=== PATIENT | male | born 1965 | race Caucasian/White ===

== ENCOUNTER 2017-01-02 18:49 | Inpatient (IN) | payer OTHER ==
[~2017-01-02] VITALS: Ht 167.6 cm; Wt 98.1 kg
[2017-01-02] MEDS ORDERED: ceFAZolin 2 GM PREMIX 50 ML ONE (18:53)
[2017-01-02] MEDS ORDERED: DIPHTH/TETANUS/ACEL PERTUSSIS (BOOSTER) 0.5 ML VIAL/PFS IM ONE (18:53)
[2017-01-02 18:56] VITALS: O2SAT 100
[2017-01-02] MEDS ORDERED: ONDANSETRON HCL 4 MG/2 ML VIAL ONE (18:57)
[2017-01-02 19:10] LABS: I-STAT POTASSIUM 4.2 MMOL/L (3.5-4.9)
--- NOTE | 2017-01-02 19:17 | PD ---
HPI Chief Complaint: trauma alert Time Seen by Provider: 18:50 Travel History International Travel<30 days: No Contact w/Intl Traveler<30days: No Traveled to known affect area: No History of Present Illness HPI Patient in his 50s was up on a scaffolding when the scaffolding gave way and patient fell. Fall was more than 8 feet height. Patient had an open tib-fib fracture of his right lower extremity and multiple right hand finger fractures. He was brought in by EMS emergently. GCS was 15 and hemodynamically stable. Patient received 8 mg of morphine on route. Patient denied any head injury or loss of consciousness. EMS had not boarded and collared him since patient didn' t complain of any neck pain. [facility] Past Medical History Narrative Medical Unknown Allergies-Medications (Allergen,Severity, Reaction): Coded Allergies: No Known Allergies (Unverified , 01/02/17) Comments Unknown Reported Meds & Prescriptions Reported Meds & Active Scripts Active Narrative Medication Unknown Review of Systems Except as stated in HPI: all other systems reviewed are Neg Physical Exam Narrative GENERAL: Awake, alert, moderate distress SKIN: Focused skin assessment warm/dry. Laceration of mid rivers area of the right leg about 3 cm with blood oozing. HEAD: Atraumatic. Normocephalic. EYES: Pupils equal and round. No scleral icterus. No injection or drainage. ENT: No nasal bleeding or discharge. Mucous membranes pink and moist. NECK: Trachea midline. No JVD. CARDIOVASCULAR: Regular rate and rhythm. No murmur appreciated. RESPIRATORY: No accessory muscle use. Clear to auscultation. Breath sounds equal bilaterally. GASTROINTESTINAL: Abdomen soft, non-tender, nondistended. Hepatic and splenic margins not palpable. MUSCULOSKELETAL: The right middle and ring finger has deformity. The ring finger ulnar aspect there is a laceration at the PIP joint. No clubbing. No cyanosis. No edema. The middle finger at the distal tip was cyanotic and discolored. NEUROLOGICAL: Awake and alert. No obvious cranial nerve deficits. Motor grossly within normal limits. Normal speech. PSYCHIATRIC: Appropriate mood and affect; insight and judgment normal. Data Data Last Documented VS Vital Signs Date Time Temp Pulse Resp B/P (MAP) Pulse Ox O2 Delivery O2 Flow Rate FiO2 01/02/17 18:56 100 21 Orders Orders Ed Poc Ultrasound (01/02/17 ) Cefazolin 2 Gm Premix (Ancef 2 Gm Premix (01/02/17 18:53) Hniz-Odf-Xrenas (Booster) Inj (Boostrix (01/02/17 18:53) Fentanyl Inj (Fentanyl Inj) (01/02/17 18:57) Ondansetron Inj (Zofran Inj) (01/02/17 18:57) Admit Order (Ed Use Only) (01/02/17 19:00) Labs Laboratory Tests Test 01/02/17 18:59 Bedside Hemoglobin 12.9 G/DL Bedside Hematocrit 38.0 % Bedside Sodium 143 MMOL/L Bedside Potassium 4.2 MMOL/L Bedside Chloride 108 MMOL/L Bedside Blood Urea Nitrogen 28 MG/DL Bedside Creatinine 1.3 MG/DL Bedside Glucose 103 MG/DL [facility] Medical Screen Exam Complete: Yes Emergency Medical Condition: Yes Medical Record Reviewed: Yes EKG Prior to Arrival: Yes Differential Diagnosis Intracranial bleed, cervical fracture, intrathoracic injury, intra-abdominal injury, open tib-fib fracture, multiple finger fracture Narrative Course 7:13 PM patient was examined along with the trauma surgeon. Pelvic and chest x- ray was negative. Patient was given IV fentanyl as per the surgeon's order for pain control. The finger dislocation was reduced by me. Please refer to my procedure note. Patient will go for CT scan. The trauma surgeon is assisting the patient. Patient remained hemodynamically stable the entire time. He was given IV Ancef and IM tetanus. Trauma surgeon will speak with the orthopedist as well as the hand surgeon. The [employer] cleaned up the wound with Betadine and saline and splint was applied. Critical Care Narrative Aggregate critical care time was 30 minutes. Time to perform other separately billable procedures was not included in the critical care time. My time did not include minutes spent treating any other patients simultaneously or on activities that did not directly contribute to the patient's treatment. The services I provided to this patient were to treat and/or prevent clinically significant deterioration that could result in: Trauma alert, I provided critical care services requiring my management, as noted below: Chart data review, documentation time, medication orders and management, vital sign assessments/reviewing monitor data, ordering and reviewing lab tests, ordering and interpreting/reviewing x-rays and diagnostic studies, care of the patient and discussion of the patient with the admitting physicians. Procedures Procedure Narrative Dislocation reduction: The middle finger DIP joint dislocation was reduced by traction. After the procedure the distal tip started to pink up. Patient tolerated the procedure well. Patient was given IV 50 g of fentanyl prior to the procedure. The finger was splinted. Trauma Alert - Level One Trauma Alert Level One: Full trauma team activate, Patient evaluated, Trauma surgeon summoned Time Surgeon Summoned: 18:[address] Pinzon Diagnosis Diagnosis: Primary Impression: Fall Qualified Codes: W19.XXXA - Unspecified fall, initial encounter Additional Impressions: Open fracture of tibia and fibula Qualified Codes: S82.201B - Unspecified fracture of shaft of right tibia, initial encounter for open fracture type I or II; S82.401B - Unspecified fracture of shaft of right fibula, initial encounter for open fracture type I or II Finger fracture Qualified Codes: S62.624B - Displaced fracture of middle phalanx of right ring finger, initial encounter for open fracture Finger dislocation Qualified Codes: S63.259A - Unspecified dislocation of unspecified finger, initial encounter Admitting Physician Requests: it Mohinder Posada MD Jan 02, 2017 19:17
--- NOTE | 2017-01-02 19:22 | RADRPT ---
EXAM DATE/TIME: 01/02/2017 19:02 [facility] COMPARISON: No previous studies available for comparison. INDICATIONS : Trauma alert, fall RADIATION DOSE: 69.15 CTDIvol (mGy) MEDICAL HISTORY : None SURGICAL HISTORY : None. ENCOUNTER: Initial ACUITY: 1 day PAIN SCALE: 0/10 LOCATION: cranial TECHNIQUE: Multiple contiguous axial images were obtained of the head. Using automated exposure control and adj ustment of the mA and/or kV according to patient size, radiation dose was kept as low as reasonably a chievable to obtain optimal diagnostic quality images. DICOM format image data is available electro nically for review and comparison. FINDINGS: CEREBRUM: The ventricles are normal for age. No evidence of midline shift, mass lesion, hemorrhage or acute in farction. No extra-axial fluid collections are seen. POSTERIOR FOSSA: The cerebellum and brainstem are intact. The 4th ventricle is midline. The cerebellopontine angle i s unremarkable. EXTRACRANIAL: The visualized portion of the orbits is intact. SKULL: The calvaria is intact. No evidence of skull fracture. CONCLUSION: 1. No acute intracranial abnormalities. Gallo Trujillo MD on January 02, 2017 at 19:19 Board Certified Radiologist. This report was verified electronically.
[2017-01-02] MEDS ORDERED: IOHEXOL 350 MG/ML 10 ML VIAL (for RAD DIAG) IVCONTRAST ONE (19:29)
--- NOTE | 2017-01-02 19:31 | RADRPT ---
EXAM DATE/TIME: 01/02/2017 18:42 [facility] COMPARISON: CT THORAX W CONTRAST, January 02, 2017, 19:10. INDICATIONS : Trauma alert. Patient fell off of ladder. MEDICAL HISTORY : None. SURGICAL HISTORY : None. ENCOUNTER: Initial ACUITY: 1 day PAIN SCORE: Non-responsive. LOCATION: chest FINDINGS: A single view of the chest demonstrates the lungs to be symmetrically aerated without evidence of mas s, infiltrate or effusion. The cardiomediastinal contours are unremarkable. Osseous structures are intact. CONCLUSION: No acute disease. Gallo Trujillo MD on January 02, 2017 at 19:29 Board Certified Radiologist. This report was verified electronically.
--- NOTE | 2017-01-02 19:32 | RADRPT ---
EXAM DATE/TIME: 01/02/2017 18:42 [facility] COMPARISON: No previous studies available for comparison. INDICATIONS : Trauma alert. Patient fell from ladder today MEDICAL HISTORY : Unobtainable SURGICAL HISTORY : Unobtainable ENCOUNTER: Initial ACUITY: 1 day PAIN SCORE: Non-responsive. LOCATION: Right hand FINDINGS: There is dislocation at the proximal interphalangeal joint of the fourth finger and at least subluxat ion at the distal interphalangeal joint of the third finger. Lateral the not available. No definite f racture seen. CONCLUSION: 1. Dislocation of the fourth and possibly the third finger. Gallo Trujillo MD on January 02, 2017 at 19:30 Board Certified Radiologist. This report was verified electronically.
--- NOTE | 2017-01-02 19:33 | RADRPT ---
EXAM DATE/TIME: 01/02/2017 18:42 [facility] COMPARISON: No previous studies available for comparison. INDICATIONS : Trauma alert. Patient fell from roof today MEDICAL HISTORY : None. SURGICAL HISTORY : None. ENCOUNTER: Initial ACUITY: 1 day PAIN SCORE: Non-responsive. LOCATION: Right mid-shaft tibia FINDINGS: Two view examination of the right tibia demonstrates slightly comminuted fracture mid tibial shaft wi th about half shaft width displacement. Slightly angulated spiral fracture proximal fibular shaft. No dislocation seen. CONCLUSION: 1. Tibial and fibular fractures as above. Gallo Trujillo MD on January 02, 2017 at 19:31 Board Certified Radiologist. This report was verified electronically.
--- NOTE | 2017-01-02 19:36 | RADRPT ---
EXAM DATE/TIME: 01/02/2017 19:03 [facility] COMPARISON: No previous studies available for comparison. INDICATIONS : Trauma alert, fall RADIATION DOSE: 42.88 CTDIvol (mGy) MEDICAL HISTORY : None SURGICAL HISTORY : None. ENCOUNTER: Initial ACUITY: 1 day PAIN SCALE: 0/10 LOCATION: neck TECHNIQUE: Volumetric scanning of the cervical spine was performed. Multiplanar reconstructions in the sagittal, coronal and oblique axial planes were performed. Using automated exposure control and adjustment o f the mA and/or kV according to patient size, radiation dose was kept as low as reasonably achievable to obtain optimal diagnostic quality images. DICOM format image data is available electronically f or review and comparison. FINDINGS: VERTEBRAE: Normal vertebral body height. ALIGNMENT: No evidence of subluxation. C2-C3: The bony spinal canal is normal in size. No evidence of disc bulge or herniation. The neural forami na are bilaterally patent. C3-C4: The bony spinal canal is normal in size. No evidence of disc bulge or herniation. The neural forami na are bilaterally patent. C4-C5: The bony spinal canal is normal in size. No evidence of disc bulge or herniation. The neural forami na are bilaterally patent. C5-C6: The bony spinal canal is normal in size. No evidence of disc bulge or herniation. The neural forami na are bilaterally patent. C6-C7: The bony spinal canal is normal in size. No evidence of disc bulge or herniation. The neural forami na are bilaterally patent. C7-T1: The bony spinal canal is normal in size. No evidence of disc bulge or herniation. The neural forami na are bilaterally patent. CONCLUSION: Normal examination. Gallo Trujillo MD on January 02, 2017 at 19:32 Board Certified Radiologist. This report was verified electronically.
--- NOTE | 2017-01-02 19:40 | RADRPT ---
EXAM DATE/TIME: 01/02/2017 19:08 [facility] COMPARISON: No previous studies available for comparison. INDICATIONS : Trauma alert, fall IV CONTRAST: 96 cc Omnipaque 350 (iohexol) IV ; Cumulative dose for multiple exams. ORAL CONTRAST: No oral contrast ingested. RADIATION DOSE: 6.87 CTDIvol (mGy) ; Combined studies - Thorax/Abdomen/Pelvis MEDICAL HISTORY : None SURGICAL HISTORY : None. ENCOUNTER: Initial ACUITY: 1 day PAIN SCALE: 0/10 LOCATION: abdomen TECHNIQUE: Volumetric scanning of the abdomen and pelvis was performed. Using automated exposure control and ad justment of the mA and/or kV according to patient size, radiation dose was kept as low as reasonably achievable to obtain optimal diagnostic quality images. DICOM format image data is available electro nically for review and comparison. FINDINGS: LOWER LUNGS: The visualized lower lungs are clear. LIVER: Homogeneous density without lesion. There is no dilation of the biliary tree. No calcified gallston es. SPLEEN: Normal size without lesion. PANCREAS: Within normal limits. KIDNEYS: Normal in size and shape. There is no mass, stone or hydronephrosis. ADRENAL GLANDS: Within normal limits. VASCULAR: There is no aortic aneurysm. BOWEL/MESENTERY: The stomach, small bowel, and colon demonstrate no acute abnormality. There is no free intraperitone al air or fluid. ABDOMINAL WALL: Within normal limits. RETROPERITONEUM: There is no lymphadenopathy. BLADDER: No wall thickening or mass. REPRODUCTIVE: Within normal limits. INGUINAL: There is no lymphadenopathy or hernia. MUSCULOSKELETAL: Within normal limits for patient age. CONCLUSION: 1. Negative for acute traumatic injury within the abdomen and pelvis. Gallo Trujillo MD on January 02, 2017 at 19:35 Board Certified Radiologist. This report was verified electronically.
--- NOTE | 2017-01-02 19:44 | RADRPT ---
EXAM DATE/TIME: 01/02/2017 19:10 [facility] COMPARISON: No previous studies available for comparison. INDICATIONS : Trauma alert, fall IV CONTRAST: 96 cc Omnipaque 350 (iohexol) IV ; Cumulative dose for multiple exams. RADIATION DOSE: 6.87 CTDIvol (mGy) ; Combined studies - Thorax/Abdomen/Pelvis MEDICAL HISTORY : None SURGICAL HISTORY : None. ENCOUNTER: Initial ACUITY: 1 day PAIN SCALE: 0/10 LOCATION: chest TECHNIQUE: Volumetric scanning of the chest was performed. Using automated exposure control and adjustment of t he mA and/or kV according to patient size, radiation dose was kept as low as reasonably achievable to obtain optimal diagnostic quality images. DICOM format image data is available electronically for review and comparison. Follow-up recommendations for detected pulmonary nodules are based at a minimum on nodule size and pa tient risk factors according to Fleischner Society Guidelines. FINDINGS: LUNGS: There is no consolidation or pneumothorax. No concerning pulmonary nodule is visualized. PLEURA: There is no pleural thickening or pleural effusion. MEDIASTINUM: The heart and great vessels demonstrate no acute abnormality. There is no mediastinal or hilar lymph adenopathy. AXILLAE: Within normal limits. No lymphadenopathy. SKELETAL: Within normal limits for patient age. MISCELLANEOUS: The visualized upper abdominal organs demonstrate no acute abnormality. CONCLUSION: 1. Negative for acute traumatic injury in the thorax. Gallo Trujillo MD on January 02, 2017 at 19:38 Board Certified Radiologist. This report was verified electronically.
[2017-01-02] MEDS ORDERED: MISCELLANEOUS NURSING INFORMATION XX SCH (20:00)
[2017-01-02] MEDS ORDERED: CHLORHEXIDINE GLUCONATE 2 % 1 PACK (2 CLOTHS) TOP PRN (20:00)
[2017-01-02] MEDS ORDERED: LACTATED RINGER'S 1000 ML INJ 1,000 ML IV SCH (20:00)
[2017-01-02 20:07] LABS: BASOPHIL % 0.5 % (0.0-2.0); EOSINOPHIL # 0.2 TH/MM3 (0-0.4); EOSINOPHIL % 1.8 % (0.0-4.0); HEMATOCRIT 33.5 % (39.0-51.0); HEMO FLAGS DIFF FINAL; LYMPH % 26.7 % (9.0-44.0); LYMPHOCYTE # 2.5 TH/MM3 (1.0-4.8); MEAN CELL VOLUME 84.7 FL (80.0-100.0); MEAN CORPUSCULAR HEMOGLOBIN 27.7 PG (27.0-34.0); MEAN CORPUSCULAR HGB CONC 32.7 % (32.0-36.0); MONO % 6.8 % (0.0-8.0); NEUT % 64.2 % (16.0-70.0); PLATELET COUNT 168 TH/MM3 (150-450); RED BLOOD COUNT 3.95 MIL/MM3 (4.50-5.90); RED CELL DISTRIBUTION WIDTH 13.7 % (11.6-17.2); WHITE BLOOD COUNT 9.4 TH/MM3 (4.0-11.0)
--- NOTE | 2017-01-02 20:24 | HHI.HP ---
History of Present Illness Primary Care Physician Unknown Admission Diagnosis fall, open tib-fib fracture, multiple finger fracture Diagnoses: History of Present Illness 51 y.o male fell 8 feet,no LOC,right hand 3,4 finger dislocation,open fracture grade 2 right LE,neurovascular intact,c/o pain right fingers,right LE,gcs 15 neuro intact,HD normal-level 1 trauma as per ER physician discretion Review of Systems Constitutional: DENIES: Diaphoretic episodes, Fatigue, Fever, Weight gain, Weight loss, Chills, Dizziness, Change in appetite, Night Sweats Endocrine: DENIES: Heat/cold intolerance, Polydipsia, Polyuria, Polyphagia Eyes: DENIES: Blurred vision, Diplopia, Eye inflammation, Eye pain, Vision loss , Photosensitivity, Double Vision Ears, nose, mouth, throat: DENIES: Tinnitus, Hearing loss, Vertigo, Nasal discharge, Oral lesions, Throat pain, Hoarseness, Ear Pain, Running Nose, Epistaxis, Sinus Pain, Toothache, Odynophagia Respiratory: DENIES: Apneas, Cough, Snoring, Wheezing, Hemoptysis, Sputum production, Shortness of breath Cardiovascular: DENIES: Chest pain, Palpitations, Syncope, Dyspnea on Exertion , PND, Lower Extremity Edema, Orthopnea, Claudication Gastrointestinal: DENIES: Abdominal pain, Black stools, Bloody stools, Constipation, Diarrhea, Nausea, Vomiting, Difficulty Swallowing, Anorexia Genitourinary: DENIES: Sexual dysfunction, Urinary frequency, Urinary incontinence, Urgency, Hematuria, Dysuria, Nocturia, Penile Discharge, Testicular Pain, Testicular Swelling Musculoskeletal: DENIES: Joint pain, Muscle aches, Stiffness, Joint Swelling, Back pain, Neck pain Integumentary: DENIES: Abnormal pigmentation, Nail changes, Pruritus, Rash Hematologic/lymphatic: DENIES: Bruising, Lymphadenopathy Immunologic/allergic: DENIES: Eczema, Urticaria Neurologic: DENIES: Abnormal gait, Headache, Localized weakness, Paresthesias, Seizures, Speech Problems, Tremor, Poor Balance Psychiatric: DENIES: Anxiety, Confusion, Mood changes, Depression, Hallucinations, Agitation, Suicidal Ideation, Homicidal Ideation, Delusions Past Family Social History Allergies: Coded Allergies: No Known Allergies (Unverified , 01/02/17) Past Medical History high cholesterol Past Surgical History none Reported Medications none Family History none Social History no drugs Physical Exam Vital Signs Vital Signs Date Time Temp Pulse Resp B/P (MAP) Pulse Ox O2 Delivery O2 Flow Rate FiO2 01/02/17 18:56 100 21 Physical Exam GENERAL: This is a well-nourished, well-developed patient, in no apparent distress. SKIN: No rashes, ecchymoses or lesions. Cool and dry. HEAD: Atraumatic. Normocephalic. No temporal or scalp tenderness. EYES: Pupils equal round and reactive. Extraocular motions intact. ENT: Nose without bleeding, purulent drainage Airway patent. NECK: Trachea midline. No JVD or lymphadenopathy. Supple, nontender, no meningeal signs. CARDIOVASCULAR: Regular rate and rhythm without murmurs, gallops, or rubs. RESPIRATORY: Clear to auscultation. Breath sounds equal bilaterally. No wheezes , rales, or rhonchi. GASTROINTESTINAL: Abdomen soft, non-tender, nondistended.or palpable masses. No guarding. MUSCULOSKELETAL: open fx grade 2 tib fib right,right hand 3rd,4 th fingers open wound palmar 4 th finger 3cm NEUROLOGICAL: Awake and alert. Cranial nerves II through XII intact. Motor and sensory grossly within normal limits. Five out of 5 muscle strength in all muscle groups. Normal speech. Laboratory Laboratory Tests Test 01/02/17 18:59 01/02/17 19:35 Bedside Hemoglobin 12.9 Bedside Hematocrit 38.0 Bedside Sodium 143 Bedside Potassium 4.2 Bedside Chloride 108 Bedside Blood Urea Nitrogen 28 Bedside Creatinine 1.3 Bedside Glucose 103 White Blood Count 9.4 Red Blood Count 3.95 Hemoglobin 11.0 Hematocrit 33.5 Mean Corpuscular Volume 84.7 Mean Corpuscular Hemoglobin 27.7 Mean Corpuscular Hemoglobin Concent 32.7 Red Cell Distribution Width 13.7 Platelet Count 168 Mean Platelet Volume 7.6 Neutrophils (%) (Auto) 64.2 Lymphocytes (%) (Auto) 26.7 Monocytes (%) (Auto) 6.8 Eosinophils (%) (Auto) 1.8 Basophils (%) (Auto) 0.5 Neutrophils # (Auto) 6.0 Lymphocytes # (Auto) 2.5 Monocytes # (Auto) 0.6 Eosinophils # (Auto) 0.2 Basophils # (Auto) 0.0 CBC Comment DIFF FINAL Differential Comment Result Diagram: 01/02/171934 Imaging Last [address] 01/02/171905 Signed Impressions: Service Date/Time: Monday, January 02, 2017 19:02 - CONCLUSION: 1. No acute intracranial abnormalities. Gallo Trujillo MD Chest X-Ray 01/02/171905 Signed Impressions: Service Date/Time: Monday, January 02, 2017 18:42 - CONCLUSION: No acute disease. Gallo Trujillo MD Chest CT 01/02/171905 Signed Impressions: Service Date/Time: Monday, January 02, 2017 19:10 - CONCLUSION: 1. Negative for acute traumatic injury in the thorax. Gallo Trujillo MD Cervical Spine CT 01/02/171905 Signed Impressions: Service Date/Time: Monday, January 02, 2017 19:03 - CONCLUSION: Normal examination. Gallo Trujillo MD Abdomen/Pelvis CT 01/02/171905 Signed Impressions: Service Date/Time: Monday, January 02, 2017 19:08 - CONCLUSION: 1. Negative for acute traumatic injury within the abdomen and pelvis. Gallo Trujillo MD Tibia/Fibula X-Ray 01/02/17 Signed Impressions: Service Date/Time: Monday, January 02, 2017 18:42 - CONCLUSION: 1. Tibial and fibular fractures as above. Gallo Trujillo MD Hand X-Ray 01/02/17 Signed Impressions: Service Date/Time: Monday, January 02, 2017 18:42 - CONCLUSION: 1. Dislocation of the fourth and possibly the third finger. MD Betty Candelario VTE Risk Assessment Caprini VTE Risk Assessment: Mod/High Risk (score >= 2) Caprini Risk Assessment Model Point Value = 1 Point Value = 2 Point Value = 3 Point Value = 5 Age 41-60 Minor surgery BMI > 25 kg/m2 Swollen legs Varicose veins or History of unexplained or recurrent spontaneous Oral contraceptives or hormone replacement Sepsis (< 1 month) Serious lung disease, including pneumonia (< 1 month) Abnormal pulmonary function Acute myocardial infarction Congestive heart failure (< 1 month) History of inflammatory bowel disease Medical patient at bed rest Age 61-74 Arthroscopic surgery Major open surgery (> 45 min) Laparoscopic surgery (> 45 min) Malignancy Confined to bed (> 72 hours) Immobilizing plaster cast Central venous access Age >= 75 History of VTE Family history of VTE Factor V Leiden Prothrombin [id number] Lupus anticoagulant Anticardiolipin antibodies Elevated serum homocysteine Heparin-induced thrombocytopenia Other congenital or acquired thrombophilia Stroke (< 1 month) Elective arthroplasty Hip, pelvis, or leg fracture Acute spinal cord injury (< 1 month) Prophylaxis Regimen Total Risk Factor Score Risk Level Prophylaxis Regimen 0-1 Low Early ambulation 2 Moderate Order ONE of the following: *Sequential Compression Device (SCD) *Heparin 5000 units SQ BID 3-4 Higher Order ONE of the following medications: *Heparin 5000 units SQ TID *Enoxaparin/Lovenox 40 mg SQ daily (WT < 150 kg, CrCl > 30 mL/min) *Enoxaparin/Lovenox 30 mg SQ daily (WT < 150 kg, CrCl > 10-29 mL/min) *Enoxaparin/Lovenox 30 mg SQ BID (WT < 150 kg, CrCl > 30 mL/min) AND/OR *Sequential Compression Device (SCD) 5 or more Highest Order ONE of the following medications: *Heparin 5000 units SQ TID (Preferred with Epidurals) *Enoxaparin/Lovenox 40 mg SQ daily (WT < 150 kg, CrCl > 30 mL/min) *Enoxaparin/Lovenox 30 mg SQ daily (WT < 150 kg, CrCl > 10-29 mL/min) *Enoxaparin/Lovenox 30 mg SQ BID (WT < 150 kg, CrCl > 30 mL/min) AND *Sequential Compression Device (SCD) Assessment and Plan Assessment and Plan open fx tib fib grade 2 dislocation 3 rd,4th finger right admit to trauma pain control iv abx given 2 gm ancef fingers reduced open wounds washed out and splints applied d/w ortho,hand surgery Flores Pinzon MD Jan 02, 2017 20:24
[2017-01-02 20:49] VITALS: BP 140/75; PULSE 81; RESP 16; TEMP 97.5; O2SAT 99
[2017-01-02] MEDS ORDERED: POVIDONE IODINE 5% (ANTISEPSIS KIT) 4 APPLICATIONS EACH NARE PRN (21:00)
[2017-01-02] MEDS ORDERED: DOCUSATE SODIUM 100 MG CAP PO SCH (21:00)
[2017-01-02] MEDS ORDERED: LACTATED RINGER'S 1000 ML IV PRN (21:00)
[2017-01-02] MEDS ORDERED: CHLORHEXIDINE GLUCONATE 2 % 1 PACK (2 CLOTHS) TOPICAL PRN (21:00)
[2017-01-02] MEDS ORDERED: SODIUM CHLORID 0.9% 500 ML IV PRN (21:00)
[2017-01-02] MEDS ORDERED: METOPROLOL TARTRATE 25 MG TAB PO PRN (21:00)
[2017-01-02] MEDS ORDERED: INSULIN HUMAN REGULAR 1,000 UNITS/10 ML VIAL SQ PRN (21:00)
[2017-01-02] MEDS: HYDROmorphone HCL PF 1 MG/ML VIAL IVP PRN (21:01)
--- NOTE | 2017-01-02 22:37 | PD.CONS ---
cc: Gwen Wood MD HPI Service Orthopedic Surgeons Consult Requested By Reason for Consult Open right tibia fracture Primary Care Physician Unknown Admission Diagnosis fall, open tib-fib fracture, multiple finger fracture Diagnoses: Chief Complaint: Open right tibia fracture History of Present Illness 51yo M s/p 8ft fall presented as trauma alert. Denies head trauma. Reports right leg and hand pain and wounds. Denies CP, SOB, AP, nausea or vomiting. Denies other extremity injury. Review of Systems Constitutional: DENIES: Fever Endocrine: DENIES: Polyuria Eyes: DENIES: Blurred vision Ears, nose, mouth, throat: DENIES: Running Nose Respiratory: DENIES: Cough Cardiovascular: DENIES: Chest pain Gastrointestinal: DENIES: Abdominal pain Genitourinary: DENIES: Urinary frequency Musculoskeletal: COMPLAINS OF: Joint pain Integumentary: DENIES: Rash Hematologic/lymphatic: COMPLAINS OF: Bruising Immunologic/allergic: DENIES: Eczema Neurologic: DENIES: Localized weakness Psychiatric: DENIES: Anxiety Past Family Social History Past Medical History hypercholesteremia Past Surgical History bone marrow transplant, appendectomy Reported Medications lipitor Allergies: Coded Allergies: No Known Allergies (Unverified , 01/02/17) Active Ordered Medications Current Medications Medications (Trade) Dose Ordered Sig/Lyubov Route Start Time Stop Time Status Last Admin Lactated Ringer's 1,000 ml @ 100 mls/hr Q10H IV 01/02/17 20:00 (Dilaudid Pf Inj) 0.5 mg Q3H PRN IVP 01/02/17 20:00 (Dilaudid Pf Inj) 1 mg Q3H PRN IVP 01/02/17 20:00 01/02/17 21:01 (Colace) 100 mg BID PO 01/02/17 21:00 01/02/17 20:59 Miscellaneous Information 1 Q361D XX 01/02/17 20:00 (Chlorhexidine 2% Cloth) 3 pack Taper DAILY@04 TOP 01/03/17 04:00 12/30/17 03:59 (Chlorhexidine 2% Cloth) 3 pack UNSCH PRN TOP 01/02/17 20:00 Lactated Ringer's 1,000 ml @ 30 mls/hr Q24H PRN IV 01/02/17 21:00 01/05/17 20:59 Sodium Chloride 500 ml @ 30 mls/hr [id number] PRN IV 01/02/17 21:00 01/05/17 20:59 (Lopressor) 25 mg SYS DIR PRN PO 01/02/17 21:00 01/05/17 20:59 (Betadine 5% Antisepsis Kit) 1 applic SYS DIR PRN EACH NARE 01/02/17 21:00 01/05/17 20:59 (Chlorhexidine 2% Cloth) 3 pack SYS DIR PRN TOPICAL 01/02/17 21:00 01/05/17 20:59 (NovoLIN R INJ) See Protocol Table ... SYS DIR PRN SQ 01/02/17 21:00 01/05/17 20:59 Reported Meds & Active Scripts Active No Active Prescriptions or Reported Medications Family History denies heart disease Social History denies tobacco, occasional alcohol Physical Exam Vital Signs Vital Signs Date Time Temp Pulse Resp B/P (MAP) Pulse Ox O2 Delivery O2 Flow Rate FiO2 01/02/17 20:49 97.5 81 16 140/75 (96) 99 01/02/17 18:56 100 21 Physical Exam Awake alert NAD Normocephalic Pupils equil Non-labored respirations Regular rate Soft, non-tender abdomen RUE: wound in between 3rd and 4th digits with corrected deformity, moving fingers spontaneously, +wrist flexion and extension. No TTP throughout rest of arm/forearm. Full active ROM of shoulder and elbow RLE: wound irrigated and dressed by ED with splint in place. +EHL and FHL. Sensation intact over toes. Unable to assess ROM due to pain. Brisk cap refill LUE and LLE: no wounds, no TTP, no deformity. Full active ROM and strength throughout. Sensation intact. Radial and DP pulses palpable Laboratory Laboratory Tests Test 01/02/17 18:59 01/02/17 19:35 Bedside Hemoglobin 12.9 Bedside Hematocrit 38.0 Bedside Sodium 143 Bedside Potassium 4.2 Bedside Chloride 108 Bedside Blood Urea Nitrogen 28 Bedside Creatinine 1.3 Bedside Glucose 103 White Blood Count 9.4 Red Blood Count 3.95 Hemoglobin 11.0 Hematocrit 33.5 Mean Corpuscular Volume 84.7 Mean Corpuscular Hemoglobin 27.7 Mean Corpuscular Hemoglobin Concent 32.7 Red Cell Distribution Width 13.7 Platelet Count 168 Mean Platelet Volume 7.6 Neutrophils (%) (Auto) 64.2 Lymphocytes (%) (Auto) 26.7 Monocytes (%) (Auto) 6.8 Eosinophils (%) (Auto) 1.8 Basophils (%) (Auto) 0.5 Neutrophils # (Auto) 6.0 Lymphocytes # (Auto) 2.5 Monocytes # (Auto) 0.6 Eosinophils # (Auto) 0.2 Basophils # (Auto) 0.0 CBC Comment DIFF FINAL Differential Comment Prothrombin Time 11.0 Prothromb Time International Ratio 1.0 Activated Partial Thromboplast Time 22.0 Result Diagram: 01/02/171934 Imaging Right tibia with midshaft fracture Assessment & Plan Assessment and Plan 51yo M with open R tibia and fibula fractures 1. Plan for OR tomorrow morning 2. NPO at midnight 3. Pain control 4. Continue IV abx for open fracture. Given abx and tetanus in ED. 5. Plan for I&D and IMN R tibia. Risks, benefits and alternatives discussed with the patient and his . Gwen Wood MD Jan 02, 2017 22:37
[2017-01-03] VITALS (7 sets, daily range): BP systolic 115–133; BP diastolic 61–79; PULSE 69–82; RESP 14–18; TEMP 96–98.5; O2SAT 96–100
[2017-01-03] MEDS: HYDROmorphone HCL PF 1 MG/ML VIAL IVP PRN ×6 (00:05→20:12)
[2017-01-03] MEDS ORDERED: CHLORHEXIDINE GLUCONATE 2 % 1 PACK (2 CLOTHS) TOP SCH (04:00)
[2017-01-03] MEDS ORDERED: GENTAMICIN SULFATE 80 MG/2 ML VIAL ONE ×3 (05:15→08:14)
[2017-01-03 06:52] LABS: AUTOMATED NEUTROPHIL # 5.4 TH/MM3 (1.8-7.7); BASOPHIL % 0.3 % (0.0-2.0); EOSINOPHIL # 0.2 TH/MM3 (0-0.4); EOSINOPHIL % 2.2 % (0.0-4.0); HEMATOCRIT 35.1 % (39.0-51.0); HEMO FLAGS DIFF FINAL; LYMPH % 27.1 % (9.0-44.0); LYMPHOCYTE # 2.3 TH/MM3 (1.0-4.8); MEAN CELL VOLUME 85.9 FL (80.0-100.0); MEAN CORPUSCULAR HGB CONC 32.7 % (32.0-36.0); MONO % 7.7 % (0.0-8.0); NEUT % 62.7 % (16.0-70.0); PLATELET COUNT 164 TH/MM3 (150-450); RED BLOOD COUNT 4.08 MIL/MM3 (4.50-5.90); RED CELL DISTRIBUTION WIDTH 13.7 % (11.6-17.2); WHITE BLOOD COUNT 8.6 TH/MM3 (4.0-11.0)
--- NOTE | 2017-01-03 07:04 | PD.ORT.PN ---
Subjective Subjective Remarks s/p fall from ladder right leg and right hand pain. Objective Vitals Vital Signs Date Time Temp Pulse Resp B/P (MAP) Pulse Ox O2 Delivery O2 Flow Rate FiO2 01/03/17 04:00 97.7 69 16 119/69 (86) 100 01/03/17 00:00 97.6 82 17 115/61 (79) 98 01/02/17 20:49 97.5 81 16 140/75 (96) 99 01/02/17 18:56 100 21 I/O 01/02/17 01/02/17 01/02/17 01/03/17 01/03/17 01/03/17 07:00 15:00 23:00 07:00 15:00 23:00 Intake Total 750 ml 0 ml Output Total 550 ml 600 ml Balance 200 ml -600 ml Intake Oral 750 ml 0 ml Output Urine Total 550 ml 600 ml Result Diagram: 01/03/17 0602 Other Results Laboratory Tests Test 01/02/17 19:35 Prothromb Time International Ratio 1.0 RATIO Prothrombin Time 11.0 SEC (9.8-11.6) Imaging Last [address] 01/02/171905 Signed Impressions: Service Date/Time: Monday, January 02, 2017 19:02 - CONCLUSION: 1. No acute intracranial abnormalities. Gallo Trujillo MD Chest X-Ray 01/02/171905 Signed Impressions: Service Date/Time: Monday, January 02, 2017 18:42 - CONCLUSION: No acute disease. Gallo Trujillo MD Chest CT 01/02/171905 Signed Impressions: Service Date/Time: Monday, January 02, 2017 19:10 - CONCLUSION: 1. Negative for acute traumatic injury in the thorax. Gallo Trujillo MD Cervical Spine CT 01/02/171905 Signed Impressions: Service Date/Time: Monday, January 02, 2017 19:03 - CONCLUSION: Normal examination. Gallo Trujillo MD Abdomen/Pelvis CT 01/02/171905 Signed Impressions: Service Date/Time: Monday, January 02, 2017 19:08 - CONCLUSION: 1. Negative for acute traumatic injury within the abdomen and pelvis. Gallo Trujillo MD Objective Remarks RLE: +short leg splint. intact. nvi. RUE: +hand splint. nvi. intact. Assessment & Plan Assessment and Plan 1) Right Open Tibial Shaft Fx -NPO -sign consents -surgery this AM 2) Right Hand Fxs -managed by hand surgery José Antonio Bentley Jan 03, 2017 07:04
[2017-01-03] MEDS ORDERED: XARE10TA PO (07:06)
[2017-01-03] MEDS ORDERED: HYDR-3583 PO (07:06)
[2017-01-03 07:10] LABS: BICARBONATE 27.7 MEQ/L (21.0-32.0); POTASSIUM 3.8 MEQ/L (3.5-5.1)
[2017-01-03] MEDS ORDERED: BUPIVACAINE/EPINEPHRINE 0.25% 50 ML VIAL ONE ×2 (07:39→08:14)
[2017-01-03] MEDS ORDERED: ceFAZolin 2 GM PREMIX 0 ML ONE (07:46)
[2017-01-03] MEDS ORDERED: VANCOMYCIN HCL 1000 MG VIAL ONE ×2 (07:46→08:14)
[2017-01-03] MEDS ORDERED: ACETAMINOPHEN 1000 MG/100 ML 100 ML IV ONE (07:54)
[2017-01-03] MEDS ORDERED: ceFAZolin 2 GM PREMIX 50 ML ONE ×2 (08:13→08:14)
[2017-01-03] MEDS: FAMOTIDINE 20 MG TAB PO SCH ×2 (09:00→20:08)
--- NOTE | 2017-01-03 09:55 | HHI.PR ---
cc: Gwen Wood MD Immediate Post Op Note Procedure Date: Jan 03, 2017 Pre Op Diagnosis: Open right tibia and fibula fracture Post Op Diagnosis: as above Surgeon: Gwen Wood Floor Worker Transfer Bay(s): Asaf Burnett Procedure: I&D right tibia and fibula fracture IMN right tibia fracture Findings: Grade 1/2 open right tibia and fibula fracture Additional Information: none Complications: none Specimen(s) removed: none Estimated blood loss: 100cc Anesthesia: General Drains: None Patient to: PACU Patient Condition: Good Implant/Devices: SEE IMPLANT LOG (if applicable) Date/Time of Procedure: SEE SURGICAL CARE RECORD Gwen Wood MD Jan 03, 2017 09:55
[2017-01-03] MEDS ORDERED: SODIUM CHLORIDE 0.9% FLUSH 10 ML FLUSH IV FLUSH PRN (10:00)
[2017-01-03] MEDS ORDERED: Post-op Orders (for Pharmacy) MISC XX ONE (10:00)
[2017-01-03] MEDS ORDERED: BISACODYL 10 MG SUPP RECTAL PRN (10:00)
[2017-01-03] MEDS ORDERED: LACTULOSE SYRUP 20 GM/30 ML CUP PO PRN (10:00)
[2017-01-03] MEDS ORDERED: MAGNESIUM HYDROXIDE SUSP 30 ML CUP PO PRN (10:00)
[2017-01-03] MEDS ORDERED: SENNOSIDES 8.6 MG TAB PO PRN (10:00)
[2017-01-03] MEDS ORDERED: DO NOT ADM ANY ANTICOAGULANT DRUGS PRN (10:30)
[2017-01-03] MEDS ORDERED: *morphine SULFATE 8 MG/ML PERIprocedure ONLY ONE (10:43)
--- NOTE | 2017-01-03 10:46 | HHI.PR ---
Subjective Subjective Notes PTD: 1 1000: IN OR 1045: IN OR 1145: Returned to room. and visitor at bedside. Pt c/o pain to RIGHT leg - "throbbing" Waiting for hand surgeon to visit and evaluate Objective Vitals/I&O Vital Signs Date Time Temp Pulse Resp B/P (MAP) Pulse Ox O2 Delivery O2 Flow Rate FiO2 01/03/17 10:30 72 14 150/83 (105) 99 Nasal Cannula 2 01/03/17 10:11 98.3 01/02/17 18:56 21 Labs Laboratory Tests Test 01/02/17 18:59 01/02/17 19:35 01/03/17 06:02 Bedside Hemoglobin 12.9 Bedside Hematocrit 38.0 Bedside Sodium 143 Bedside Potassium 4.2 Bedside Chloride 108 Bedside Blood Urea Nitrogen 28 Bedside Creatinine 1.3 Bedside Glucose 103 White Blood Count 9.4 8.6 Red Blood Count 3.95 4.08 Hemoglobin 11.0 11.4 Hematocrit 33.5 35.1 Mean Corpuscular Volume 84.7 85.9 Mean Corpuscular Hemoglobin 27.7 28.0 Mean Corpuscular Hemoglobin Concent 32.7 32.7 Red Cell Distribution Width 13.7 13.7 Platelet Count 168 164 Mean Platelet Volume 7.6 7.6 Neutrophils (%) (Auto) 64.2 62.7 Lymphocytes (%) (Auto) 26.7 27.1 Monocytes (%) (Auto) 6.8 7.7 Eosinophils (%) (Auto) 1.8 2.2 Basophils (%) (Auto) 0.5 0.3 Neutrophils # (Auto) 6.0 5.4 Lymphocytes # (Auto) 2.5 2.3 Monocytes # (Auto) 0.6 0.7 Eosinophils # (Auto) 0.2 0.2 Basophils # (Auto) 0.0 0.0 CBC Comment DIFF FINAL DIFF FINAL Differential Comment Prothrombin Time 11.0 Prothromb Time International Ratio 1.0 Activated Partial Thromboplast Time 22.0 Blood Urea Nitrogen 20 Creatinine 1.14 Random Glucose 108 Calcium Level 8.6 Sodium Level 140 Potassium Level 3.8 Chloride Level 107 Carbon Dioxide Level 27.7 Anion Gap 5 Estimat Glomerular Filtration Rate 55 Radiology Last Impressions Head CT 01/02/171905 Signed Impressions: Service Date/Time: Monday, January 02, 2017 19:02 - CONCLUSION: 1. No acute intracranial abnormalities. Gallo Trujillo MD Chest X-Ray 01/02/171905 Signed Impressions: Service Date/Time: Monday, January 02, 2017 18:42 - CONCLUSION: No acute disease. Gallo Trujillo MD Chest CT 01/02/171905 Signed Impressions: Service Date/Time: Monday, January 02, 2017 19:10 - CONCLUSION: 1. Negative for acute traumatic injury in the thorax. Gallo Trujillo MD Cervical Spine CT 01/02/171905 Signed Impressions: Service Date/Time: Monday, January 02, 2017 19:03 - CONCLUSION: Normal examination. Gallo Trujillo MD Abdomen/Pelvis CT 01/02/171905 Signed Impressions: Service Date/Time: Monday, January 02, 2017 19:08 - CONCLUSION: 1. Negative for acute traumatic injury within the abdomen and pelvis. Gallo Trujillo MD Tibia/Fibula X-Ray 01/02/17 Signed Impressions: Service Date/Time: Monday, January 02, 2017 18:42 - CONCLUSION: 1. Tibial and fibular fractures as above. Gallo Trujillo MD Hand X-Ray 01/02/17 Signed Impressions: Service Date/Time: Monday, January 02, 2017 18:42 - CONCLUSION: 1. Dislocation of the fourth and possibly the third finger. Gallo Trujillo MD Narrative Exam GENERAL: This is a 52's year old male lying in bed. Just returned from OR. SKIN: Warm and dry. HEAD: Atraumatic. Normocephalic. EYES: PERRLA ENT: No nasal bleeding or discharge. Mucous membranes pink and moist. NECK: Trachea midline. No JVD. CARDIOVASCULAR: Regular rate and rhythm. RESPIRATORY: No accessory muscle use. Lungs are clear to auscultation. Breath sounds equal bilaterally. No distress or dyspnea. GASTROINTESTINAL: BS + x 4 quads. Abdomen soft, non-tender, nondistended. MUSCULOSKELETAL: Extremities without cyanosis, or edema. RIGHT hand wrapped with manuel bandage. RIGHT lower extremity with splint in place and wrapped with manuel bandage. + peripheral pulses x 4 extremities. Warm with good capillary refill and sensation. MAEW. NEUROLOGICAL: Awake and alert. Normal speech and pattern. A/P Problem List: (1) Open fracture of tibia and fibula ICD Codes: S82.209B - Unspecified fracture of shaft of unspecified tibia, initial encounter for open fracture type I or II; S82.409B - Unspecified fracture of shaft of unspecified fibula, initial encounter for open fracture type I or II Status: Acute (2) Fall ICD Codes: W19.XXXA - Unspecified fall, initial encounter Status: Acute (3) Finger fracture ICD Codes: S62.609A - Fracture of unspecified phalanx of unspecified finger, initial encounter for closed fracture Status: Acute (4) Finger dislocation ICD Codes: S63.259A - Unspecified dislocation of unspecified finger, initial encounter Status: Acute Assessment and Plan [place]: This is a 52's year old male who sustained a fall. The scaffolding that he was standing on gave away and he fell more than 8 feet. GCS = 15. INJURIES: RIGHT finger 3rd? and 4th dislocation RIGHT tib/fib fx PMHx: Procedures: 01/02: Right finger reduction in ED 01/03: I&D and IM nail of RIGHT tibia. Consults: Orthopedics. Hand Surgery. Case management. Diet: Regular diet. Tolerating po diet. Encourage good po intake with each meal. Pulmonary: Encourage good pulmonary toileting. IS at bedside and pt encouraged to use. Rationale for use explained to patient, and verbalized understanding. PAIN Management: Percocet 5-10 mg q 4h. Dilaudid 0.5 mg q 4 hrs for breakthrough pain. Activity: OOB. PT and OT ordered. (PWB RLE) GI prophylaxis: Pepcid BID. Bowel regimen: Nata-colace and MOM. Lactulose. Senna PRN. Bisacodyl PRN. LBM : 0 DVT prophylaxis: Mechanical VTE with SCDs. Chemical management with Lovenox 30 BID SQ. DC Planning: Case management consulted for assistance with final discharge disposition. Emotional support provided to patient and family at bedside and plan of care discussed. Discussed with RN at bedside. Patient is hemodynamically stable and being managed on the med/surg floor. The trauma team will round each day, and evaluate plan of care on a daily basis. RIGHT finger 3rd? and 4th dislocation 01/02: Right finger reduction in ED Hand surgery consulted - awaiting assessment and plan. awaiting WBS RIGHT tib/fib fx Orthopedics consulted and assisting in management and care. 01/03: I&D. IM nail RIGHT tibia. PWB RLE) Pain management PT and OT ordered DVT prophylaxis. Remarks Seen and examined by the nurse practitioner, open tib-fib fracture going to the OR with orthopedic surgery, hand surgical input is pending, continue antibiotics DVT prophylaxis pain control Problem Qualifiers (1) Open fracture of tibia and fibula: Qualified Codes: S82.201B - Unspecified fracture of shaft of right tibia, initial encounter for open fracture type I or II; S82.401B - Unspecified fracture of shaft of right fibula, initial encounter for open fracture type I or II (2) Fall: Qualified Codes: W19.XXXA - Unspecified fall, initial encounter (3) Finger fracture: Qualified Codes: S62.624B - Displaced fracture of middle phalanx of right ring finger, initial encounter for open fracture (4) Finger dislocation: Qualified Codes: S63.259A - Unspecified dislocation of unspecified finger, initial encounter Rona Givens Jan 03, 2017 10:46 Flores Pinzon MD Jan 03, 2017 14:30
--- NOTE | 2017-01-03 11:29 | OTSOAPIP ---
RECEIVED OCCUPATIONAL THERAPY ORDERS. ATTEMPTED TO SEE PATIENT, HOWEVER PATIENT WAS OFF FLOOR UNDERGOING SURGICAL INTERVENTION. WILL FOLLOW UP WITH PATIENT TOMORROW. Therapist: Jaylin Mcgowan, OTR/L Signature on file
[2017-01-03] MEDS ORDERED: oxyCODONE/ACETAMINOPHEN 5 MG/325 MG TAB PO PRN (11:30)
--- NOTE | 2017-01-03 12:35 | RADRPT ---
EXAM DATE/TIME: 01/03/2017 09:33 [facility] COMPARISON: FLUOROSCOPY PORTABLE UP TO 1HR, January 03, 2017, 0:00. INDICATIONS : Open reduction internal fixation of right tibia fracture MEDICAL HISTORY : None. SURGICAL HISTORY : None. ENCOUNTER: Initial ACUITY: 1 day PAIN SCORE: Non-responsive. LOCATION: Right mid-shaft tibia FINDINGS: The exam demonstrates a medullary tristin placement across the patient's tibial fracture. The alignment p ost rodding is excellent. CONCLUSION: 1. Excellent alignment of the patient's fracture post intramedullary tristin placement. Sujit Auguste MD on January 03, 2017 at 12:33 Board Certified Radiologist. This report was verified electronically.
[2017-01-03] MEDS: oxyCODONE/ACETAMINOPHEN 10 MG/325 MG TAB PO PRN ×3 (13:26→23:07)
[2017-01-03] MEDS: ENOXAPARIN SODIUM 30 MG/0.3 ML SYRINGE SQ SCH (14:00)
[2017-01-03] MEDS ORDERED: ONDANSETRON HCL 4 MG/2 ML VIAL IV PUSH ONE (14:41)
[2017-01-03] MEDS ORDERED: ePHEDrine/NS 25 MG/5 ML SYR IV ONE (14:41)
[2017-01-03] MEDS ORDERED: GLYCOPYRROLATE 1 MG/5 ML SYRINGE IV PUSH ONE (14:41)
[2017-01-03] MEDS ORDERED: PROPOFOL 200 MG/20 ML AMP IV ONE (14:41)
[2017-01-03] MEDS ORDERED: SUCCINYLCHOLINE CHLORIDE 100 MG/5 ML SYRINGE IV PUSH ONE (14:41)
[2017-01-03] MEDS ORDERED: PHENYLEPH/NS 1000 MCG/10 ML SYR IV ONE (14:41)
[2017-01-03] MEDS ORDERED: MIDAZOLAM HCL 2 MG/2 ML VIAL IV ONE (14:41)
[2017-01-03] MEDS ORDERED: DEXAMETHASONE SOD PHOS 4 MG/ML VIAL IV ONE (14:41)
[2017-01-03] MEDS ORDERED: LIDOCAINE HCL 1% PF 5 ML AMPULE OTHER ONE (14:41)
[2017-01-03] MEDS ORDERED: SODIUM CHLORIDE 0.9% 20 ML VIAL IV ONE (14:41)
--- NOTE | 2017-01-03 17:11 | RADRPT ---
EXAM DATE/TIME: 01/03/2017 16:43 [facility] COMPARISON: HAND, RIGHT, ONE VIEW, January 02, 2017, 18:42. INDICATIONS : Dislocation. MEDICAL HISTORY : None. SURGICAL HISTORY : None. ENCOUNTER: Initial ACUITY: 2 days PAIN SCORE: 3/10 LOCATION: Right upper extremity hand. 3rd and 4th digits. FINDINGS: Bone density is normal. A splint obscures osseous detail. The fourth PIP dislocation has been reduced since the previous study. No obvious fracture fragments. CONCLUSION: Interval reduction of fourth PIP joint dislocation. Marlon Andres MD on January 03, 2017 at 17:09 Board Certified Radiologist. This report was verified electronically.
--- NOTE | 2017-01-03 17:12 | MB ---
cc: JUAN BACK III, M.D. DATE OF CONSULTATION: 01/03/2017. HISTORY OF PRESENT ILLNESS: The patient is a 51-year-old right hand dominant male who came in as a trauma last night after falling eight feet from a ladder. He had a right lower extremity open tibia/fibula fracture which was operated on by this morning and had right ring finger proximal interphalangeal joint dislocation, which was washed out and reduced in the emergency room by the emergency room staff and splinted. PAST MEDICAL HISTORY: Hypercholesterolemia. PAST SURGICAL HISTORY: Denied. MEDICATIONS: He takes a medicine for his elevated cholesterol. FAMILY HISTORY: Noncontributory to this injury. SOCIAL HISTORY: He denies smoking currently. REVIEW OF SYSTEMS: The patient is not complaining of any headache, blurry or double vision. He is not complaining of any cough, wheezing or shortness of breath. He is not complaining of any nausea or vomiting or abdominal pain. He is not complaining of any burning, frequency or urgency with urination. He is not complaining of side, neck or back pain. He is not complaining of any lower extremity pain, weakness or swelling with the exception of the right lower leg. He is not complaining of any night sweats, fevers or chills. He is not complaining of any anxiety, depression or suicidal ideations. IMAGING STUDIES: One x-ray was done showing ring finger dislocation at the proximal interphalangeal joint and distal interphalangeal joint subluxation of the middle finger but there were no other x-rays following that. LABORATORY STUDIES: Laboratory studies were reviewed and are in [facility]. Hemoglobin is 11.4 grams/dL. Platelet count is 164,000. BUN and creatinine are 20 and 1.14. Coagulation studies are within normal limits. PHYSICAL EXAMINATION: GENERAL: He is well-developed, well-nourished and in no apparent distress lying comfortably in his bed. He is awake, alert and oriented times three. He is very pleasant. RIGHT UPPER EXTREMITY: For examination of the right upper extremity, I removed his splint. He has a small laceration on the radial side of the ring finger of the proximal phalanx that is clean. His fingers all appear normal in position and angulation. There is no malrotation or malangulation anywhere. His fingers are slightly swollen. Capillary refill is less than 2 seconds in all fingertips. He is fully sensate in all the fingertips. His fingers are stiff and painful following the injury. It does appear that all of the flexor tendons are intact; however because of pain, he cannot give me a reliable examination of the ring finger. All fingers, hand and forearm are soft. There is no evidence of any compartment syndrome. There is no subcutaneous emphysema. There is very mild ecchymosis in the palm. There is an IV remaining in the right antecubital fossa. There is no evidence of any bleeding. IMPRESSION: 1. Right ring finger PIP open dislocation status post washout and reduction. 2. Right middle finger DIP subluxation status post reduction, stable. 3. Ring finger status post reduction and stable also. PLAN: 1. Splint for tonight. 2. Will likely begin working with occupational / hand therapy in the next day or two. I discussed the findings with the patient. If the ring finger does not start moving a little bit more convincingly tomorrow, will get an MRI to assess for the possibility of a tendon rupture, which is unlikely, but possible. He understands and agrees and wishes to proceed. I have also ordered post-reduction films today. MD ABEBE Cosme III/MARJORIE /4:47 PM /4:56 PM
[2017-01-03] MEDS: MAGNESIUM HYDROXIDE SUSP 30 ML CUP PO SCH (20:08)
[2017-01-03] MEDS: DOCUSATE SODIUM 50 MG/SENNA 8.6 MG TAB PO SCH (20:08)
[2017-01-03] MEDS: SODIUM CHLORIDE 0.9% FLUSH 10 ML FLUSH IV FLUSH SCH (20:08)
[2017-01-04] MEDS: ENOXAPARIN SODIUM 30 MG/0.3 ML SYRINGE SQ SCH ×2 (02:40→14:30)
[2017-01-04] MEDS: HYDROmorphone HCL PF 1 MG/ML VIAL IVP PRN ×6 (02:40→23:30)
[2017-01-04 03:10] VITALS: BP 137/76; PULSE 67; RESP 18; TEMP 97.2; O2SAT 98
[2017-01-04] MEDS: oxyCODONE/ACETAMINOPHEN 10 MG/325 MG TAB PO PRN ×5 (03:58→21:28)
[2017-01-04 06:06] LABS: AUTOMATED NEUTROPHIL # 9.8 TH/MM3 (1.8-7.7); BASOPHIL % 0.1 % (0.0-2.0); EOSINOPHIL # 0.1 TH/MM3 (0-0.4); EOSINOPHIL % 0.4 % (0.0-4.0); HEMATOCRIT 33.7 % (39.0-51.0); HEMO FLAGS DIFF FINAL; LYMPH % 16.7 % (9.0-44.0); LYMPHOCYTE # 2.1 TH/MM3 (1.0-4.8); MEAN CELL VOLUME 85.4 FL (80.0-100.0); MEAN CORPUSCULAR HEMOGLOBIN 27.9 PG (27.0-34.0); MEAN CORPUSCULAR HGB CONC 32.7 % (32.0-36.0); MONO % 6.4 % (0.0-8.0); NEUT % 76.4 % (16.0-70.0); PLATELET COUNT 166 TH/MM3 (150-450); RED BLOOD COUNT 3.95 MIL/MM3 (4.50-5.90); RED CELL DISTRIBUTION WIDTH 13.9 % (11.6-17.2); WHITE BLOOD COUNT 12.9 TH/MM3 (4.0-11.0)
[2017-01-04 06:32] LABS: BICARBONATE 26.8 MEQ/L (21.0-32.0); POTASSIUM 4.3 MEQ/L (3.5-5.1)
[2017-01-04] MEDS ORDERED: HYDR-3580 PO (06:54)
[2017-01-04] MEDS ORDERED: XARE10TA PO (06:54)
[2017-01-04] MEDS ORDERED: WALKER/ADULT/FO1 MIS (06:57)
--- NOTE | 2017-01-04 06:58 | HHI.FF ---
Face to Face Verification Diagnosis: (1) Open fracture of tibia and fibula (2) Finger dislocation (3) Finger fracture Physical Therapy Gait training Right LE Weight Bearing: Partial WB 50% Left LE Weight Bearing: WB as tolerated Occupational Therapy Right UE Weight Bearing: May use Platform Walker Nursing Dressing Changes: Daily dressing change, Pablo wrap, 4x4s, Xeroform I have seen patient Smaeer Lee on 01/04/17. My clinical findings support the need for the requested home health care services because: Ltd mobility - disease progression I certify that my clinical findings support that this patient is homebound because: Post-op weakness José Antonio Bentley Jan 04, 2017 06:58
[2017-01-04] MEDS ORDERED: MAGN400S PO (07:56)
[2017-01-04] MEDS ORDERED: SENN1TAB PO (07:56)
[2017-01-04 08:00] VITALS: BP 122/73; PULSE 79; RESP 18; TEMP 97.6; O2SAT 97
[2017-01-04] MEDS: DOCUSATE SODIUM 50 MG/SENNA 8.6 MG TAB PO SCH ×2 (08:26→19:39)
[2017-01-04] MEDS: FAMOTIDINE 20 MG TAB PO SCH ×2 (08:26→19:39)
[2017-01-04] MEDS: LACTULOSE SYRUP 20 GM/30 ML CUP PO SCH (08:27)
[2017-01-04] MEDS: SODIUM CHLORIDE 0.9% FLUSH 10 ML FLUSH IV FLUSH SCH ×2 (08:28→19:39)
[2017-01-04] MEDS ORDERED: ATOR1TAB18 PO (10:53)
[2017-01-04] MEDS ORDERED: CABE0.5T PO (10:53)
--- NOTE | 2017-01-04 11:02 | HHI.PR ---
Subjective Subjective Notes PTD: 2 Patient OOB and sitting in recliner chair. and friend at bedside. Patient states, "this is my first time out of bed. I'm very, very sore." "I'm getting muscle spasms in my leg." Objective Vitals/I&O Vital Signs Date Time Temp Pulse Resp B/P (MAP) Pulse Ox O2 Delivery O2 Flow Rate FiO2 01/04/17 08:00 97.6 79 18 122/73 (89) 97 01/03/17 17:14 Nasal Cannula 2.00 01/02/17 18:56 21 Labs Laboratory Tests Test 01/04/17 05:25 White Blood Count 12.9 Red Blood Count 3.95 Hemoglobin 11.0 Hematocrit 33.7 Mean Corpuscular Volume 85.4 Mean Corpuscular Hemoglobin 27.9 Mean Corpuscular Hemoglobin Concent 32.7 Red Cell Distribution Width 13.9 Platelet Count 166 Mean Platelet Volume 7.8 Neutrophils (%) (Auto) 76.4 Lymphocytes (%) (Auto) 16.7 Monocytes (%) (Auto) 6.4 Eosinophils (%) (Auto) 0.4 Basophils (%) (Auto) 0.1 Neutrophils # (Auto) 9.8 Lymphocytes # (Auto) 2.1 Monocytes # (Auto) 0.8 Eosinophils # (Auto) 0.1 Basophils # (Auto) 0.0 CBC Comment DIFF FINAL Differential Comment Blood Urea Nitrogen 13 Creatinine 0.97 Random Glucose 109 Calcium Level 9.5 Sodium Level 141 Potassium Level 4.3 Chloride Level 107 Carbon Dioxide Level 26.8 Anion Gap 7 Estimat Glomerular Filtration Rate 82 Narrative Exam GENERAL: This is a 51 year old male OOB in a recliner chair. No distress noted. SKIN: Warm and dry. HEAD: Atraumatic. Normocephalic. EYES: PERRLA ENT: No nasal bleeding or discharge. Mucous membranes pink and moist. NECK: Trachea midline. No JVD. CARDIOVASCULAR: Regular rate and rhythm. RESPIRATORY: No accessory muscle use. Lungs are clear to auscultation. Breath sounds equal bilaterally. No distress or dyspnea. GASTROINTESTINAL: BS + x 4 quads. Abdomen soft, non-tender, nondistended. MUSCULOSKELETAL: Extremities without cyanosis, or edema. RIGHT hand wrapped with manuel bandage. RIGHT lower extremity with splint in place and wrapped with manuel bandage. + peripheral pulses x 4 extremities. Warm with good capillary refill and sensation. MAEW. (Difficulty moving right ring finger.) NEUROLOGICAL: Awake and alert. Normal speech and pattern. A/P Problem List: (1) Open fracture of tibia and fibula ICD Codes: S82.209B - Unspecified fracture of shaft of unspecified tibia, initial encounter for open fracture type I or II; S82.409B - Unspecified fracture of shaft of unspecified fibula, initial encounter for open fracture type I or II Status: Acute (2) Fall ICD Codes: W19.XXXA - Unspecified fall, initial encounter Status: Acute (3) Finger fracture ICD Codes: S62.609A - Fracture of unspecified phalanx of unspecified finger, initial encounter for closed fracture Status: Acute (4) Finger dislocation ICD Codes: S63.259A - Unspecified dislocation of unspecified finger, initial encounter Status: Acute Assessment and Plan [place]: This is a 51 year old male who sustained a fall. The scaffolding that he was standing on gave away and he fell more than 8 feet. GCS = 15. INJURIES: RIGHT finger 3rd? and 4th dislocation RIGHT tib/fib fx PMHx: Procedures: 01/02: Right finger reduction in ED 01/03: I&D and IM nail of RIGHT tibia. Consults: Orthopedics. Hand Surgery. Case management. Diet: Regular diet. Tolerating po diet. Encourage good po intake with each meal. Pulmonary: Encourage good pulmonary toileting. IS at bedside and pt encouraged to use. Rationale for use explained to patient, and verbalized understanding. Restarted home medications. PAIN Management: Percocet 5-10 mg q 4h. Dilaudid 0.5 mg q 4 hrs for breakthrough pain. Added Robaxin 500 mg every 8 hours. Activity: OOB. PT and OT ordered. (PWB RLE) GI prophylaxis: Pepcid BID. Bowel regimen: Nata-colace and MOM. Lactulose. Senna PRN. Bisacodyl PRN. LBM : 0 DVT prophylaxis: Mechanical VTE with SCDs. Chemical management with Lovenox 30 BID SQ. DC Planning: Case management consulted for assistance with final discharge disposition. Plan for discharge tomorrow, barring any plans for surgery from Dr. Mclain. Emotional support provided to patient and family at bedside and plan of care discussed. Discussed with RN at bedside. Patient is hemodynamically stable and being managed on the med/surg floor. The trauma team will round each day, and evaluate plan of care on a daily basis. RIGHT finger 3rd? and 4th dislocation 01/02: Right finger reduction in ED Hand surgery consulted - Dr. Mclain Further evaluation of movement needed to right ring finger Possible need for MRI per Dr. Mclain awaiting WBS RIGHT tib/fib fx Orthopedics consulted and assisting in management and care. 01/03: I&D. IM nail RIGHT tibia. PWB RLE Supportive care Pain management PT and OT ordered DVT prophylaxis. Orthopedics has cleared the patient for discharge Follow-up outpatient. Remarks Patient seen and examined with the nurse practitioners, status post orthopedic procedure, doing well complaints of pain during early ambulation, hand input appreciated patient may need MRI to rule out tendon injuries, continue physical therapy pain control Problem Qualifiers (1) Open fracture of tibia and fibula: Qualified Codes: S82.201B - Unspecified fracture of shaft of right tibia, initial encounter for open fracture type I or II; S82.401B - Unspecified fracture of shaft of right fibula, initial encounter for open fracture type I or II (2) Fall: Qualified Codes: W19.XXXA - Unspecified fall, initial encounter (3) Finger fracture: Qualified Codes: S62.624B - Displaced fracture of middle phalanx of right ring finger, initial encounter for open fracture (4) Finger dislocation: Qualified Codes: S63.259A - Unspecified dislocation of unspecified finger, initial encounter Rona Givens Jan 04, 2017 11:02 Flores Pinzon MD Jan 04, 2017 14:07
[2017-01-04 12:00] VITALS: BP 128/79; PULSE 70; RESP 18; TEMP 96.9; O2SAT 97
[2017-01-04] MEDS: METHOCARBAMOL 500 MG TAB PO SCH ×2 (14:22→21:28)
--- NOTE | 2017-01-04 14:53 | HHI.PR ---
Subjective Remarks still concerned that he cannot move his fingers of his right hand (MF and RF) Objective Vital Signs Date Time Temp Pulse Resp B/P (MAP) Pulse Ox O2 Delivery O2 Flow Rate FiO2 01/04/17 12:00 96.9 70 18 128/79 (95) 97 01/04/17 08:00 97.6 79 18 122/73 (89) 97 01/04/17 03:10 97.2 67 18 137/76 (96) 98 01/03/17 23:43 97.5 79 18 127/74 (91) 99 01/03/17 19:34 98.5 82 18 133/76 (95) 98 01/03/17 17:14 97 Nasal Cannula 2.00 01/03/17 16:00 98.5 75 17 128/62 (84) 96 I/O 01/03/17 01/03/17 01/03/17 01/04/17 01/04/17 01/04/17 07:00 15:00 23:00 07:00 15:00 23:00 Intake Total 0 ml 2020 ml 580 ml 720 ml Output Total 600 ml 100 ml 350 ml 2100 ml Balance -600 ml 1920 ml 230 ml -1380 ml Intake Oral 0 ml 720 ml 480 ml 720 ml IV Total 100 ml 100 ml Other 1200 ml Output Urine Total 600 ml 350 ml 2100 ml Estimated Blood Loss 100 ml # Voids 3 # Bowel Movements 0 0 Result Diagram: 01/04/1725 01/04/17524 Objective Remarks all fingers of right hand are completely viable no cyanosis anywhere wound is clean fingers are all normally aligned and fully sensate still mild edema in 3rd and 4th fingers i do see a flicker of motion from the FDP in 3 and 4 but i'm not convinced AA x O x 3 Assessment and Plan Problem List: (1) Finger dislocation ICD Codes: S63.259A - Unspecified dislocation of unspecified finger, initial encounter Status: Acute Plan: d/w pt and his in the room the possibilities and possible need for surgical repair if tendons are ruptured we will go ahead and get an MRI (i spoke w MRI re compatibility of IMN in tibia and it is ok they said) d/c right hand splint and donya tape right 3rd and 4th fingers together 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
[2017-01-04 16:00] VITALS: BP 124/73; PULSE 75; RESP 19; TEMP 97.7; O2SAT 97
[2017-01-04] MEDS ORDERED: CABERGOLINE 0.5 MG PO SCH (17:00)
[2017-01-04] MEDS ORDERED: [UNRECOGNIZED DRUG - OTHER] PO SCH (17:00)
[2017-01-04] MEDS: CIPROFLOXACIN 500 MG TAB PO SCH ×2 (17:06→19:39)
--- NOTE | 2017-01-04 17:08 | RADRPT ---
EXAM DATE/TIME: 01/04/2017 16:37 [facility] COMPARISON: No previous studies available for comparison. INDICATIONS : Post open reduction internal fixation of a right tibia fracture. MEDICAL HISTORY : None. SURGICAL HISTORY : ORIF Right tibia ENCOUNTER: Subsequent ACUITY: 2 days PAIN SCORE: 9/10 LOCATION: Right tibia FINDINGS: The patient is status post ORIF of a right tibia fracture with antegrade intramedullary tristin fixation across the mid tibial comminuted fracture with 2 proximal interlocking screws and 2 distal interlocki ng screws, with good alignment at the fracture site. An oblique slightly displaced proximal fibular f racture is again seen. Skin akhil are identified. CONCLUSION: Postsurgical changes. Marlon Andres MD on January 04, 2017 at 17:06 Board Certified Radiologist. This report was verified electronically.
--- NOTE | 2017-01-04 18:48 | RADRPT ---
EXAM DATE/TIME: 01/04/2017 16:11 [facility] COMPARISON: HAND, RIGHT, ONE VIEW, January 02, 2017, 18:42. HAND RIGHT COMPLETE ([id number]), January 03, 2017, 16: 43. INDICATIONS : Trauma. Evaluate for suspected flexor tendon ruptures right 3rd/4th fingers. Internal derangement. MEDICAL HISTORY : Hypercholesterolemia. Leukemia. SURGICAL HISTORY : Appendectomy. ENCOUNTER: Initial ACUITY: 3 day PAIN SCORE: 3/10 LOCATION: Right hand. TECHNIQUE: Multiplanar, multisequence MRI examination was performed without contrast. FINDINGS: There is edema involving the palmar soft tissues of the third and fourth fingers and to some degree e xtending to the circumferential proximal fingers and dorsal aspect of the fourth finger back to the l evel of the metacarpal phalangeal joint. The flexor tendons are intact. Specifically no evidence of r upture. Bony alignment is satisfactory with no evidence of fracture. Articulations appear intact. CONCLUSION: No evidence of flexor tendon ruptures Wilmar Serra MD on January 04, 2017 at 18:33 Board Certified Radiologist. This report was verified electronically.
[2017-01-04 19:39] VITALS: BP 125/75; PULSE 93; RESP 18; TEMP 97.8; O2SAT 95
[2017-01-04] MEDS: MAGNESIUM HYDROXIDE SUSP 30 ML CUP PO SCH (19:39)
[2017-01-04] MEDS: MULTIVITAMINS/MINERALS THERAPEUTIC TAB PO SCH (19:39)
[2017-01-04 23:36] VITALS: BP 133/78; PULSE 87; RESP 18; TEMP 97.9; O2SAT 98
[2017-01-05] MEDS: ENOXAPARIN SODIUM 30 MG/0.3 ML SYRINGE SQ SCH ×2 (02:04→14:05)
[2017-01-05] MEDS: oxyCODONE/ACETAMINOPHEN 10 MG/325 MG TAB PO PRN ×5 (02:04→17:56)
[2017-01-05] MEDS: METHOCARBAMOL 500 MG TAB PO SCH ×2 (04:27→14:04)
[2017-01-05] MEDS: HYDROmorphone HCL PF 1 MG/ML VIAL IVP PRN (04:27)
[2017-01-05 08:00] VITALS: BP 126/70; PULSE 80; RESP 19; TEMP 97.2; O2SAT 100
[2017-01-05] MEDS: FAMOTIDINE 20 MG TAB PO SCH (08:34)
[2017-01-05] MEDS: DOCUSATE SODIUM 50 MG/SENNA 8.6 MG TAB PO SCH (08:34)
[2017-01-05] MEDS: CIPROFLOXACIN 500 MG TAB PO SCH (08:34)
[2017-01-05] MEDS: MULTIVITAMINS/MINERALS THERAPEUTIC TAB PO SCH (08:34)
[2017-01-05] MEDS: SODIUM CHLORIDE 0.9% FLUSH 10 ML FLUSH IV FLUSH SCH (08:34)
[2017-01-05] MEDS: LACTULOSE SYRUP 20 GM/30 ML CUP PO SCH (08:45)
[2017-01-05] MEDS ORDERED: ATORVASTATIN 80 MG TAB PO SCH (09:00)
[2017-01-05 12:00] VITALS: BP 133/66; PULSE 81; RESP 18; TEMP 96.3; O2SAT 98
--- NOTE | 2017-01-05 13:22 | HHI.PR ---
Subjective Remarks No new complaints Objective Vital Signs Date Time Temp Pulse Resp B/P (MAP) Pulse Ox O2 Delivery O2 Flow Rate FiO2 01/05/17 12:00 96.3 81 18 133/66 (88) 98 01/05/17 08:00 97.2 80 19 126/70 (88) 100 01/04/17 23:36 97.9 87 18 133/78 (96) 98 01/04/17 19:39 97.8 93 18 125/75 (92) 95 01/04/17 18:11 Nasal Cannula 2.00 01/04/17 16:00 97.7 75 19 124/73 (90) 97 I/O 01/04/17 01/04/17 01/04/17 01/05/17 01/05/17 01/05/17 07:00 15:00 23:00 07:00 15:00 23:00 Intake Total 720 ml 1440 ml 480 ml 480 ml Output Total 2100 ml 1000 ml Balance -1380 ml 1440 ml 480 ml -520 ml Intake Oral 720 ml 1440 ml 480 ml 480 ml Output Urine Total 2100 ml 1000 ml # Voids 3 2 # Bowel Movements 0 1 2 0 Result Diagram: 01/04/1752401/04/17524 Objective Remarks all fingers of right hand are completely viable no cyanosis anywhere wound is clean fingers are all normally aligned and fully sensate still mild edema in 3rd and 4th fingers The fingers are still donya taped together AA x O x 3 He had his splint on his right hand when I came in Assessment and Plan Problem List: (1) Finger dislocation ICD Codes: S63.259A - Unspecified dislocation of unspecified finger, initial encounter Status: Acute Plan: d/c right hand splint and donya tape right 3rd and 4th fingers 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 I do agree with the radiologist's interpretation fully I ordered occupational therapy to start working with the patient and I discussed this [id number] with the occupational therapist I would like the patient is start washing and drying his hand and he said he is not done at now and 24 hours Problem Qualifiers (1) Finger dislocation: Qualified Codes: S63.259A - Unspecified dislocation of unspecified finger, initial encounter Sami Mclain III, MD Jan 05, 2017 13:22
--- NOTE | 2017-01-05 14:22 | HHI.DS ---
Discharge Summary Admission Date Jan 02, 2017 at 19:05 Discharge Date: Jan 05, 2017 Admitting Diagnosis fall, open tib-fib fracture, multiple finger fracture (1) Open fracture of tibia and fibula ICD Codes: S82.209B - Unspecified fracture of shaft of unspecified tibia, initial encounter for open fracture type I or II; S82.409B - Unspecified fracture of shaft of unspecified fibula, initial encounter for open fracture type I or II Diagnosis: Principal Status: Acute (2) Fall ICD Codes: W19.XXXA - Unspecified fall, initial encounter Diagnosis: Principal Status: Acute (3) Finger fracture ICD Codes: S62.609A - Fracture of unspecified phalanx of unspecified finger, initial encounter for closed fracture Diagnosis: Principal Status: Acute (4) Finger dislocation ICD Codes: S63.259A - Unspecified dislocation of unspecified finger, initial encounter Diagnosis: Principal Status: Acute Brief History Fall. CBC/BMP: 01/04/17 0525 01/04/17 0525 Significant Findings Laboratory Tests Test 01/02/17 18:59 01/02/17 19:35 01/03/17 06:02 01/04/17 05:25 Bedside Blood Urea Nitrogen 28 MG/DL (8-26) Bedside Glucose 103 MG/DL (60-95) Red Blood Count 3.95 MIL/MM3 (4.50-5.90) 4.08 MIL/MM3 (4.50-5.90) 3.95 MIL/MM3 (4.50-5.90) Hemoglobin 11.0 GM/DL (13.0-17.0) 11.4 GM/DL (13.0-17.0) 11.0 GM/DL (13.0-17.0) Hematocrit 33.5 % (39.0-51.0) 35.1 % (39.0-51.0) 33.7 % (39.0-51.0) Activated Partial Thromboplast Time 22.0 SEC (24.3-30.1) Blood Urea Nitrogen 20 MG/DL (7-18) Random Glucose 108 MG/DL (74-106) 109 MG/DL (74-106) Estimat Glomerular Filtration Rate 55 ML/MIN (>89) 82 ML/MIN (>89) White Blood Count 12.9 TH/MM3 (4.0-11.0) Neutrophils (%) (Auto) 76.4 % (16.0-70.0) Neutrophils # (Auto) 9.8 TH/MM3 (1.8-7.7) Imaging Last Impressions Tibia/Fibula X-Ray 01/04/17 Signed Impressions: Service Date/Time: Wednesday, January 04, 2017 16:37 - CONCLUSION: Postsurgical changes. Marlon Andres MD Hand MRI 01/04/17 Signed Impressions: Service Date/Time: Wednesday, January 04, 2017 16:11 - CONCLUSION: No evidence of flexor tendon ruptures Wilmar Serra MD Hand X-Ray 01/03/17 Signed Impressions: Service Date/Time: Tuesday, January 03, 2017 16:43 - CONCLUSION: Interval reduction of fourth PIP joint dislocation. Marlon Andres MD Head CT 01/02/171905 Signed Impressions: Service Date/Time: Monday, January 02, 2017 19:02 - CONCLUSION: 1. No acute intracranial abnormalities. Gallo Trujillo MD Chest X-Ray 01/02/171905 Signed Impressions: Service Date/Time: Monday, January 02, 2017 18:42 - CONCLUSION: No acute disease. Gallo Trujillo MD Chest CT 01/02/171905 Signed Impressions: Service Date/Time: Monday, January 02, 2017 19:10 - CONCLUSION: 1. Negative for acute traumatic injury in the thorax. Gallo Trujillo MD Cervical Spine CT 01/02/171905 Signed Impressions: Service Date/Time: Monday, January 02, 2017 19:03 - CONCLUSION: Normal examination. Gallo Trujillo MD Abdomen/Pelvis CT 01/02/171905 Signed Impressions: Service Date/Time: Monday, January 02, 2017 19:08 - CONCLUSION: 1. Negative for acute traumatic injury within the abdomen and pelvis. Gallo Trujillo MD PE at Discharge GENERAL: This is a 51 year old male sitting up in bed. No distress noted. SKIN: Warm and dry. HEAD: Atraumatic. Normocephalic. EYES: PERRLA ENT: No nasal bleeding or discharge. Mucous membranes pink and moist. NECK: Trachea midline. No JVD. CARDIOVASCULAR: Regular rate and rhythm. RESPIRATORY: No accessory muscle use. Lungs are clear to auscultation. Breath sounds equal bilaterally. No distress or dyspnea. GASTROINTESTINAL: BS + x 4 quads. Abdomen soft, non-tender, nondistended. MUSCULOSKELETAL: Extremities without cyanosis, or edema. RIGHT middle and ring fingers taped together. RIGHT lower extremity with splint in place and wrapped with manuel bandage. + peripheral pulses x 4 extremities. Warm with good capillary refill and sensation. MAEW. NEUROLOGICAL: Awake and alert. Normal speech and pattern. Hospital Course [place]: This is a 51 year old male who sustained a fall. The scaffolding that he was standing on gave away and he fell more than 8 feet. GCS = 15. INJURIES: RIGHT finger 3rd? and 4th dislocation RIGHT tib/fib fx PMHx: Procedures: 01/02: Right finger reduction in ED 01/03: I&D and IM nail of RIGHT tibia. Consults: Orthopedics. Hand Surgery. Case management. The patient is now tolerating a po diet. Eating and drinking well. Pain is being managed well with PO pain medications, and patient is being a provided with a script for pain meds upon discharge. (NO driving while taking narcotic pain medication enforced to patient.) We have recommended to patient to continue with stool softeners while taking narcotic pain medications to prevent constipation. Pt has been participating in PT and OT while admitted at [facility] and has been ambulating with their assistance and independently . Home health care PT has been recommended and will be arranged. All follow up appointments have been provided and discussed with the patient. It is recommended that the patient keeps all his follow up appointments for continued recovery. Therefore, the patient is stable to be safely discharged home from a trauma surgery standpoint. Thank you for allowing us to participate in his care. We wish Sameer the best in his recovery. RIGHT finger 3rd? and 4th dislocation 01/02: Right finger reduction in ED Hand surgery consulted - Dr. Mclain MRI neg for any tendon damage Follow-up outpatient with Dr. Mclain RIGHT tib/fib fx Orthopedics consulted and assisting in management and care. 01/03: I&D. IM nail RIGHT tibia. PWB RLE Supportive care Pain management PT and OT ordered DVT prophylaxis. Orthopedics has cleared the patient for discharge Follow-up outpatient. Pt Condition on Discharge: Stable Discharge Disposition: Disch w/ Home Health Serv Discharge Instructions DIET: Follow Instructions for: As Tolerated, No Restrictions Additional Diet Instructions: Partial weight bearing RLE Activities you can perform: Partial Weight Bearing Activities to Avoid: Concussion Sports, Contact Sports, Lifting/Bending, Weight Bearing, Strenuous Activity, Driving Other Activity Instructions: No driving while taking narcotic pain meds Rona Givens Jan 05, 2017 14:22
[2017-01-05 16:00] VITALS: BP 125/77; PULSE 99; RESP 19; TEMP 97; O2SAT 95
--- NOTE | 2017-01-09 14:29 | MP ---
cc: GWEN LARSON MD DATE OF SURGERY 01/03/2017 PREOPERATIVE DIAGNOSIS 1. Open right tibia fracture 2. Open right fibula fracture POSTOPERATIVE DIAGNOSIS 1. Open right tibia fracture 2. Open right fibula fracture PROCEDURE 1. Irrigation and debridement right tibia and fibula fractures. 2. Intramedullary nailing right tibia fracture. 3. Closed treatment of right fibula fracture. ANESTHESIA General SURGEON Gwen Larson MD COMPLICATIONS None SPECIMEN None ESTIMATED BLOOD LOSS Approximately 100 cc INDICATION FOR THE PROCEDURE The patient is a 51 year-old gentleman who presented with about an eight foot fall. The patient denied any head trauma, but did report right leg and hand pain, along with open wounds. The patient was found to have a right hand injury and hand surgery was consulted. Orthopedic surgery is consulted for the right open tibia and fibula shaft fractures. Treatment options were discussed with his family members who were at bedside to include irrigation and debridement with intramedullary nailing of his right tibia fracture. The risks of surgery including, but not limited to risk of infection, malunion, nonunion, hardware failure, or malposition, damage to neurovascular structures, knee pain, possible need for further surgery and possible unforeseen complications were all discussed with the patient. He did decide to proceed with the aforementioned surgery. DESCRIPTION OF PROCEDURE The patient was taken back to the operating room and placed supine on the operating room table. General anesthesia then ensued. The patient was prepped and draped in standard sterile fashion. A time out was performed to identify the correct patient, side, site and procedure to be performed. Preoperative antibiotics were administered as he was on scheduled antibiotics for the open nature of his injury. I then turned my attention to the open injury over his right tibial and fibular shaft fractures. This wound was approximately 1-2 cm in length. It was extended slightly to allow complete delivery of the bone ends for a thorough debridement. There was no gross contamination noted. The skin edges were trimmed to allow for appropriate approximation at the end of the procedure. The bone ends were thoroughly irrigated and debrided. At that time, we turned our attention to intramedullary nailing of the tibia. A suprapatellar incision was made just proximal to the superior pole of the patella with sharp dissection and electrocautery through the skin and subcutaneous tissue. Sharp dissection through the mid-substance of the quadriceps tendon just proximal to the superior pole of the patella straight down to bone was made. A guidewire was then placed through the knee joint into the proximal aspect of the tibia with a drill sleeve for protection of the joint cartilage. Fluoroscopy was used to identify the appropriate starting point for the guidewire at the proximal aspect of the tibia. When satisfied in both AP and lateral projections, the guidewire was advanced. An opening reamer was used to allow entry into the intramedullary canal of the tibia. A ball-tipped guidewire was then placed as the fracture was held reduced with gentle traction and rotation. The tibia was then subsequently reamed up in size to allow for a size 10 nail to be placed. After the canal had been reamed up to an 11, measurement was taken to identify the correct length nail. The nail was then placed while the fracture was held reduced. Proximal and distal locking screws were then placed through the jig and then with a free-hand technique with the use of fluoroscopy at the distal aspect. The nail was found to be in good position and the fracture in acceptable alignment. The wounds were copiously irrigated with normal saline loaded with gentamicin. All incisions were then closed with interrupted Vicryl and nylon sutures and akhil. The open injury was closed with nylon sutures. The patient then had sterile dressings placed over all wounds. The patient was awoken from general anesthesia without complication. DISPOSITION The patient was instructed to remain partial weight-bearing of approximately 50% to the right lower extremity. The patient should continue antibiotics for an open fracture for approximately 48-hours after surgery. The patient was instructed to follow up in the clinic in about two weeks after surgery. MD ISMAEL Felix/FRANCI /10:35 AM /2:27 PM
[2017-01-12] MEDS ORDERED: CEPH500T PO (09:07)
== END 2017-01-05 18:39 | disposition home health service (06) | DRG 494 ==
LOC: NEPI 18:49 → NEDA 19:05 → EDBD 19:05 → N06A 20:36
PROVIDERS: ADMIT Surgery Trauma Surgery; ATTEND Surgery Trauma Surgery
PROC: 0RSSXZZ Reposition Right Carpometacarpal Joint, External Approach (ICD-10-PCS; 2017-01-02)
PROC: 0QSG36Z Reposition Right Tibia with Intramedullary Internal Fixation Device, Percutaneous Approach (ICD-10-PCS; principal; 2017-01-03 07:17)
DX: S82.201B Unspecified fracture of shaft of right tibia, initial encounter for open fracture type I or II (principal); M62.838 Other muscle spasm; S63.284A Dislocation of proximal interphalangeal joint of right ring finger, initial encounter; S82.401B Unspecified fracture of shaft of right fibula, initial encounter for open fracture type I or II; S63.295A Dislocation of distal interphalangeal joint of left ring finger, initial encounter; S61.215A Laceration without foreign body of left ring finger without damage to nail, initial encounter; E78.00 Pure hypercholesterolemia, unspecified; S63.242A Subluxation of distal interphalangeal joint of right middle finger, initial encounter; W12.XXXA Fall on and from scaffolding, initial encounter; Y93.9 Activity, unspecified; Y92.9 Unspecified place or not applicable; S62.624A Displaced fracture of middle phalanx of right ring finger, initial encounter for closed fracture
CPT/HCPCS: 26770; 70450; 71010; 71260; 72125; 73130; 73218; 73590; 74177; 76000; 80048; 82435; 82565; 82947; 84132; 84295; 84520; 85025; 85610; 85730; 86850; 86900; 86901; 90471; 90715; 96374; 96375; 96376; 99291; C1713; G0390; J0131; J0330; J0690; J1100; J1170; J1580; J1650; J2250; J2270; J2370; J2405; J3010; J3370; L0150; Q9967

== ENCOUNTER → 2017-07-23 | Outpatient (CLI) | payer OTHER ==
[~2017-07-23] VITALS: Ht 167.6 cm; Wt 91.0 kg
[~2017-07-23] MED LIST: ATOR80TA45 PO; CABE0.5T PO; CHLORHEXIDINE GLUCONATE 2 % 1 PACK (2 CLOTHS) TOPICAL PRN; LACTATED RINGER'S 1000 ML IV PRN; LIDOCAINE HCL 1% PF 5 ML AMPULE ONE; LIDOCAINE HCL 2% JELLY 5 ML SYRINGE TOPICAL ONE; METOPROLOL TARTRATE 25 MG TAB PO PRN; POVIDONE IODINE 5% (ANTISEPSIS KIT) 4 APPLICATIONS EACH NARE PRN; PROPARACAINE HCL 0.5% OPHT SOLN 15 ML BTL RIGHT EYE ONE; SODIUM CHLORID 0.9% 500 ML IV PRN; TOBRAMYCIN/DEXAMETHASONE OPTH OINT 3.5 GM TUBE ONE
[2017-07-23] MEDS: FLURBIPROFEN 0.03% OPHT SOLN 2.5 ML BTL RIGHT EYE SCH ×4 (06:45→07:00)
[2017-07-23] MEDS: TROPICAMIDE 1% OPHT SOLN 15 ML BTL RIGHT EYE SCH ×4 (06:45→07:00)
[2017-07-23] MEDS: PHENYLEPHRINE HCL 10% OPTH SOLN 5 ML BTL RIGHT EYE SCH ×4 (06:45→07:00)
[2017-07-23] MEDS: CYCLOPENTOLATE HCL 1% OPHT SOLN 2 ML BTL RIGHT EYE SCH ×4 (06:45→07:00)
[2017-07-23 09:00] VITALS: BP 120/74; PULSE 68; RESP 16; TEMP 98; O2SAT 98
--- NOTE | 2017-07-23 10:36 | MP ---
cc: Yoseph Michael MD DATE OF OPERATION: 07/23/2017 [facility] NUMBER: [id number]. PREOPERATIVE DIAGNOSIS: Visually significant cataract, right eye. POSTOPERATIVE DIAGNOSIS: Visually significant cataract, right eye. OPERATION: Phacoemulsification with posterior chamber lens implantation, right eye. SURGEON: Yoseph Michael MD ANESTHESIA: Topical with MAC. COMPLICATIONS: None. PROCEDURE: After informed consent was obtained, the patient was brought into the operative suite and placed on appropriate monitors by the Anesthesia Service. The patient had been given dilating drops and topical lidocaine gel in the holding area. The patient's operative eye was then prepped and draped in the usual sterile fashion. A wire lid speculum was placed. Further 2% lidocaine was then dropped on the cornea prior to beginning the procedure. A paracentesis incision was made in the peripheral cornea with a 1 mm andreina keratome. The anterior chamber was filled with viscoelastic. The anterior chamber was then entered through a stepped, clear corneal incision using a sharp 3 mm andreina keratome. A circular tear capsulorrhexis was then made with a bent needle cystitome. Following hydrodissection of the lens nucleus with balance saline, phaco-emulsification of the nucleus was performed using a modified chopping technique. The remaining cortex was removed with irrigation/aspiration. The prior two procedures were both performed using the handpieces of the [employer] phaco unit. The capsular bag was then filled with viscoelastic. The intraocular lens was then injected into the capsular bag and positioned. The type of intraocular lens and its power can be found elsewhere in this chart. The remaining viscoelastic was then removed from the anterior chamber with the IA handpiece. The anterior chamber was reformed with balanced saline. The wound was then closed securely with stromal hydration. It was found to be watertight to an intraocular pressure of at least 30 mmHg by palpation. A small amount of balanced salt solution was then removed through the paracentesis site and the intraocular pressure at the end of the case was approximately 20 by palpation. All drapes were then removed. TobraDex ointment was then placed in the eye, which was closed beneath a semi-pressure patch dressing. The patient tolerated this procedure well and left the operating room awake and alert. The patient is to follow-up in my office in the morning. ADDENDUM: After the clear corneal incisions were sealed watertight, a 6 mm limbal relaxing incision was made with a 600 micron andreina blade, centered around the nasal 30 degree meridian. MD VERONICA Correia , 10:24 AM , 10:35 AM
== END ==
LOC: PHSDC 06:26
PROVIDERS: ATTEND Optometrist Occupational Vision
DX: H26.9 Unspecified cataract (principal)
CPT/HCPCS: 00142; 66984; J7040; V2632

== ENCOUNTER → 2017-09-03 | Outpatient (CLI) | payer OTHER ==
[~2017-09-03] VITALS: Ht 167.6 cm; Wt 91.0 kg
[~2017-09-03] MED LIST changes: +HYALURONIDASE/LIDOCAINE/BUPIVACAINE 5 ML SYR LEFT EYE ONE; +LIDOCAINE HCL 1% PF 30 ML VIAL ONE; -LIDOCAINE HCL 1% PF 5 ML AMPULE ONE; -LIDOCAINE HCL 2% JELLY 5 ML SYRINGE TOPICAL ONE; +MULT-65 PO; +PROPARACAINE HCL 0.5% OPHT SOLN 15 ML BTL LEFT EYE ONE; -PROPARACAINE HCL 0.5% OPHT SOLN 15 ML BTL RIGHT EYE ONE; +PROPOFOL 200 MG/20 ML AMP ONE
[2017-09-03 06:37] VITALS: PULSE 66
[2017-09-03] MEDS: CYCLOPENTOLATE HCL 1% OPHT SOLN 2 ML BTL LEFT EYE SCH ×4 (06:37→06:52)
[2017-09-03] MEDS: TROPICAMIDE 1% OPHT SOLN 15 ML BTL LEFT EYE SCH ×4 (06:37→06:52)
[2017-09-03] MEDS: PHENYLEPHRINE HCL 10% OPTH SOLN 5 ML BTL LEFT EYE SCH ×4 (06:37→06:52)
[2017-09-03] MEDS: FLURBIPROFEN 0.03% OPHT SOLN 2.5 ML BTL LEFT EYE SCH ×4 (06:37→06:52)
[2017-09-03 07:35] VITALS: PULSE 77
[2017-09-03 08:17] VITALS: TEMP 97.7
[2017-09-03 08:27] VITALS: BP 100/69; PULSE 68; RESP 16; O2SAT 98
--- NOTE | 2017-09-03 10:48 | MP ---
cc: Yoseph Michael MD DATE OF OPERATION: 09/03/2017 [facility] # [id number] PREOPERATIVE DIAGNOSIS: Visually significant cataract left eye. POSTOPERATIVE DIAGNOSIS: Visually significant cataract left eye. OPERATION: Phacoemulsification with posterior chamber lens implantation, left eye. SURGEON: Yoseph Michael MD ANESTHESIA: Retrobulbar with MAC. COMPLICATIONS: None. PROCEDURE: After informed consent was obtained, the patient was brought into the operative suite and placed on appropriate monitors by the Anesthesia Service. The patient had received a prior retrobulbar injection of local anesthetic by the Anesthesia Service in the holding area. The patient's operative eye was then prepped and draped in the usual sterile fashion. A wire lid speculum was placed. A paracentesis incision was made in the peripheral cornea with a 1 mm andreina keratome. The anterior chamber was filled with viscoelastic. The anterior chamber was then entered through a stepped, clear corneal incision using a sharp 3 mm andreina keratome. A circular tear capsulorrhexis was then made with a bent needle cystitome. Following hydrodissection of the lens nucleus with balanced saline, phaco-emulsification of the nucleus was performed using a modified chopping technique. The remaining cortex was removed with irrigation/aspiration. The prior two procedures were both performed using the handpieces of the [employer] phaco unit. The capsular bag was then filled with viscoelastic. The intraocular lens was then injected into the capsular bag and positioned. The type of intraocular lens and its power can be found elsewhere in this chart. The remaining viscoelastic was then removed from the anterior chamber with the IA handpiece. The anterior chamber was reformed with balanced saline. The wound was then closed securely with stromal hydration. It was found to be watertight to an intraocular pressure of at least 30 mmHg by palpation. A small amount of balanced salt solution was then removed through the paracentesis site and the intraocular pressure at the end of the case was approximately 20 by palpation. All drapes were then removed. TobraDex ointment was then placed in the eye, which was closed beneath a semi-pressure patch dressing. The patient tolerated this procedure well and left the operating room awake and alert. The patient is to follow-up in my office in the morning. MD KAMILAH Correia , 10:25 AM , 10:48 AM
== END ==
LOC: PHSDC 06:03
PROVIDERS: ATTEND Optometrist Occupational Vision
DX: H26.9 Unspecified cataract (principal); J45.909 Unspecified asthma, uncomplicated
CPT/HCPCS: 00142; 66984; J7040; V2632